=== PATIENT | male | born 1935 | race Caucasian/White ===

== ENCOUNTER 2016-08-27 11:56 | Day surgery (SDC) | payer OTHER ==
[~2016-08-27 11:56] MED LIST: ASAB PO; ATEN25 PO; GLUCPH PO; HCTZ12.5 PO; NITROSTAT0.4 MG SL; P5 PO; PCET PO; PRILOSEC40 MG PO; PROAIR HFA INH; VITAMIN B-121000 MC1 SL; ZOCOR40 PO; ZOL50 PO
[2016-10-06] MEDS ORDERED: DOCUSOFT S100 MG PO (08:37)
[2016-10-06] MEDS ORDERED: TRAZ100 PO (08:39)
== END 2016-08-27 17:55 | disposition home or self-care (01) ==
LOC: IMGHOLD 11:56 → RADHOLD 12:05 → SDC/OF 14:45
DX: M48.07 Spinal stenosis, lumbosacral region (principal); M51.26 Other intervertebral disc displacement, lumbar region; I10 Essential (primary) hypertension; E78.00 Pure hypercholesterolemia, unspecified; I25.2 Old myocardial infarction; J44.9 Chronic obstructive pulmonary disease, unspecified; I25.10 Atherosclerotic heart disease of native coronary artery without angina pectoris; F41.9 Anxiety disorder, unspecified; F32.9 Major depressive disorder, single episode, unspecified; E11.9 Type 2 diabetes mellitus without complications; G47.33 Obstructive sleep apnea (adult) (pediatric); Z88.2 Allergy status to sulfonamides
CPT/HCPCS: 72148; 73721-RT; 80048; 82962; 85014; 85018; 93005